=== PATIENT | female | born 1985 ===

== ENCOUNTER → 2023-05-20 09:51 | Outpatient (CLI) | payer BC, SELFPAY ==
--- NOTE | ~2023-05-20 | US_ITS ---
EXAMINATION: US pelvic complete w TV DATE: 05/20/2023 10:24 INDICATION: Left ovarian cyst. TECHNIQUE: Multiple transabdominal and transvaginal sonographic images of the pelvis were obtained. COMPARISON: None. FINDINGS: TRANSABDOMINAL ULTRASOUND: The uterus is absent. There is no free fluid in the pelvis. TRANSVAGINAL ULTRASOUND: The right ovary measures 2.8 x 2.2 x 3.0 cm. There is a 1.7 cm hemorrhagic cyst in right ovary. The l eft ovary measures 2.8 x 1.9 x 1.7 cm. There is normal vascular flow in the ovaries. IMPRESSION: 1. Normal left ovary. 2. 1.7 cm hemorrhagic cyst in right ovary. Reviewed, dictated and finalized at location A.
== END ==
DX: N83.292 Other ovarian cyst, left side (principal)
CPT/HCPCS: 76830; 76856